=== PATIENT | male | born 1985 | race Caucasian/White ===

== ENCOUNTER 2018-08-30 21:24 | Emergency (ER) | payer MEDICAID ==
[2018-08-30] MEDS: METHOCARBAMOL 750 MG TAB PO (23:25)
[2018-08-30] MEDS: KETOROLAC 30 MG INJ IM (23:26)
[2018-08-30] MEDS: DEXAMETHASONE 10 MG/ML 1 ML INJ IM (23:26)
== END 2018-08-31 01:09 | disposition home or self-care (01) ==
LOC: FTE 08-31 01:09
DX: M54.5 Low back pain (principal)
CPT/HCPCS: 72100; 96372; 99284-25